=== PATIENT | female | born 1985 | race Two or more races ===

== ENCOUNTER 2023-09-17 14:33 | Emergency (ER) | payer SELFPAY ==
[~2023-09-17] VITALS: Ht 154.9 cm; Wt 194.0 kg
[2023-09-17 17:06] VITALS: PULSE 90; RESP 18; O2SAT 98
[2023-09-17 17:09] VITALS: BP 138/94; PULSE 90; RESP 18; O2SAT 96
[2023-09-17] MEDS ORDERED: CEPH250C PO (17:12)
== END 2023-09-17 16:31 | disposition home or self-care (01) ==
LOC: ER 14:33
DX: M79.662 Pain in left lower leg (principal)
CPT/HCPCS: 93971